=== PATIENT | female | born 1965 | race Caucasian/White ===

== ENCOUNTER 2018-06-04 16:07 | Emergency (ER) | payer OTHER ==
[~2018-06-04] VITALS: Ht 157.4 cm; Wt 88.5 kg
[~2018-06-04 16:07] MED LIST: AUGMENTIN 875 M1 TAB PO; CIPROFLOXACIN500 MG PO; CLARITIN10 MG PO; DIFLUCAN200 MG PO; MACROBID100 M1 PO; PROVENTIL0.09 MG/AC IH; ULTRAM50 MG PO
[2018-06-04 16:08] VITALS: BP 143/78
[2018-06-04 17:27] LABS: BILIRUBIN NEGATIVE (NEGATIVE); BLOOD 3+ (NEGATIVE); CLARITY CLOUDY (CLEAR); GLUCOSE NEGATIVE (NEGATIVE); KETONE NEGATIVE (NEGATIVE); LEUKO ESTERASE 2+ (NEGATIVE); NITRITE NEGATIVE (NEGATIVE); PH 5.5 (5.0-9.0); SPECIFIC GRAVITY >= 1.030 (1.005-1.030); UROBILINOGEN 0.2 E.U./dl (0.2-1.0)
[2018-06-04 17:33] LABS: COLOR YELLOW (YELLOW)
[2018-06-04 17:35] LABS: BACTERIA 3+; RBC TNTC rbc/hpf (0-2); WBC TNTC wbc/hpf (0-5)
[2018-06-04] MEDS ORDERED: KEFLEX500 M1 PO (17:43)
== END 2018-06-04 18:00 | disposition home or self-care (01) ==
LOC: ED 16:07
PROVIDERS: Physician Assistant
DX: N39.0 Urinary tract infection, site not specified (principal); Z88.1 Allergy status to other antibiotic agents; Z88.2 Allergy status to sulfonamides

== ENCOUNTER 2024-01-10 13:45 | Emergency (ER) | payer OTHER ==
[~2024-01-10] VITALS: Ht 157.4 cm; Wt 90.7 kg
[~2024-01-10 13:45] MED LIST changes: +KEFLEX500 M1 PO; +NITROFURANTOIN100 M3 PO
[2024-01-10 13:49] VITALS: BP 141/75
[2024-01-10] MEDS ORDERED: ACETAMINOPHEN 325 MG TAB PO ONE (14:00)
[2024-01-10] MEDS ORDERED: DEXAMETHASONE6 MG PO (15:23)
[2024-01-10] MEDS ORDERED: FLUONAZOLE150 M1 PO (15:23)
== END 2024-01-10 14:58 | disposition home or self-care (01) ==
LOC: ED 13:45
DX: U07.1 COVID-19 (principal); I10 Essential (primary) hypertension; E11.9 Type 2 diabetes mellitus without complications; J45.909 Unspecified asthma, uncomplicated; F32.A Depression, unspecified; Z88.2 Allergy status to sulfonamides; Z88.1 Allergy status to other antibiotic agents; Z88.8 Allergy status to other drugs, medicaments and biological substances; Z98.51 Tubal ligation status; Z90.49 Acquired absence of other specified parts of digestive tract; Z90.710 Acquired absence of both cervix and uterus

== ENCOUNTER 2024-01-26 13:44 | Emergency (ER) | payer OTHER ==
[~2024-01-26] VITALS: Wt 90.7 kg
[~2024-01-26 13:44] MED LIST changes: +DEXAMETHASONE6 MG PO; +FLUONAZOLE150 M1 PO
[2024-01-26 13:53] VITALS: BP 141/90
[2024-01-26] MEDS ORDERED: CEPHALEXIN 500 MG CAP PO ONE (14:05)
[2024-01-26] MEDS ORDERED: CEPHALEXIN500 M1 PO (14:09)
[2024-01-26] MEDS ORDERED: VIBRAMYCIN100 MG PO (14:09)
[2024-01-26 14:38] LABS: BILIRUBIN Negative (Negative); BLOOD 2+ (Negative); CLARITY Clear (Clear); COLOR Yellow (Yellow); GLUCOSE Negative (Negative); KETONE Trace (Negative); LEUKO ESTERASE 2+ (Negative); NITRITE Negative (Negative)
[2024-01-26 15:03] LABS: BACTERIA 1+; RBC 31-40 rbc/hpf (0-2)
== END 2024-01-26 14:22 | disposition home or self-care (01) ==
LOC: ED 13:44
PROVIDERS: Emergency Medicine
DX: N39.0 Urinary tract infection, site not specified (principal); E11.9 Type 2 diabetes mellitus without complications; J45.909 Unspecified asthma, uncomplicated; I10 Essential (primary) hypertension; F32.A Depression, unspecified; Z88.2 Allergy status to sulfonamides; Z88.1 Allergy status to other antibiotic agents; Z88.8 Allergy status to other drugs, medicaments and biological substances; Z90.49 Acquired absence of other specified parts of digestive tract; Z98.51 Tubal ligation status; Z98.890 Other specified postprocedural states

== ENCOUNTER → 2024-04-08 | Outpatient (CLI) | payer OTHER ==
[~2024-04-08] MED LIST changes: +CEPHALEXIN500 M1 PO; +VIBRAMYCIN100 MG PO
[2024-04-08 14:36] LABS: BASO % 0.4 % (0.0-1.0); EOS # 0.2 10*3/uL (0.0-0.4); HEMATOCRIT 45.5 % (37.0-47.0); MEAN CELL VOLUME 80.2 fl (81.0-99.0); MEAN CORPUSCULAR HGB 24.2 pg (27.0-31.0); MEAN CORPUSCULAR HGB CONC 30.1 g/dl (33.0-37.0); MEAN PLATELET VOLUME 10.1 fl (9.6-12.3); MONO # 0.6 10*3/uL (0.1-1.0); MONO % 6.1 % (3.0-9.0); NEUT # 7.3 10*3/uL (2.3-7.9); PLATELET COUNT AUTOMATED 370 10*3/uL (130-400); RED BLOOD COUNT 5.67 10*6/uL (4.10-5.10); RED CELL DISTRI WIDTH 16.3 % (0-14.5); WHITE BLOOD COUNT 10.3 10*3/uL (4.8-10.8)
[2024-04-08 14:36] LABS: BILIRUBIN Negative (Negative); BLOOD Negative (Negative); CLARITY Clear (Clear); COLOR Yellow (Yellow); GLUCOSE Negative (Negative); KETONE Negative (Negative); LEUKO ESTERASE 2+ (Negative); NITRITE Negative (Negative); PH 5.5 (4.5-8.0); SPECIFIC GRAVITY 1.015 (1.001-1.030)
[2024-04-08 15:05] LABS: FREE T4 1.48 ng/dl (0.89-1.76); POTASSIUM 4.5 mmol/L (3.4-5.1); TOTAL PROTEIN 8.8 gm/dL (6.0-8.0)
[2024-04-08 15:13] LABS: BACTERIA 1+; WBC 51-100 wbc/hpf (0-5)
== END | disposition home or self-care (01) ==
LOC: LAB 13:46
PROVIDERS: ATTEND Internal Medicine
DX: E11.40 Type 2 diabetes mellitus with diabetic neuropathy, unspecified (principal); E55.9 Vitamin D deficiency, unspecified; R35.0 Frequency of micturition

== ENCOUNTER 2024-04-27 16:59 | Emergency (ER) | payer OTHER ==
[~2024-04-27] VITALS: Ht 157.4 cm; Wt 90.7 kg
[2024-04-27 17:18] VITALS: BP 137/77
[2024-04-27] MEDS ORDERED: CETIRIZINE HYDR10 MG PO (17:28)
[2024-04-27] MEDS ORDERED: TERBINAFINE250 MG PO (17:28)
[2024-04-27] MEDS ORDERED: CLOBETASOL PROP15 GM T (17:29)
[2024-04-27] MEDS ORDERED: DULOXETINE HCL60 MG PO (17:29)
[2024-04-27] MEDS ORDERED: AMMONIUM LACTA227 GM T (17:29)
[2024-04-27] MEDS ORDERED: GABAPENTIN600 MG PO (17:29)
[2024-04-27] MEDS ORDERED: METOPROLOL TART50 M1 PO (17:30)
[2024-04-27] MEDS ORDERED: MELOXICAM7.5 MG PO (17:30)
[2024-04-27] MEDS ORDERED: JANUVIA100 MG PO (17:30)
[2024-04-27] MEDS ORDERED: MIRTAZAPINE30 M2 PO (17:30)
[2024-04-27] MEDS ORDERED: Magnesium Oxid400 MG PO (17:31)
[2024-04-27] MEDS ORDERED: TOUJEO SOL300 UNIT/1 SQ (17:31)
[2024-04-27] MEDS ORDERED: METFORMIN HYD1000 MG PO (17:32)
[2024-04-27] MEDS ORDERED: PANTOPRAZOLE SO40 MG PO (17:32)
[2024-04-27] MEDS ORDERED: Ketorolac Tromethamine 60 MG/2 ML VIAL IM ONE (19:25)
[2024-04-27 20:27] LABS: BILIRUBIN Negative (Negative); BLOOD Negative (Negative); CLARITY Clear (Clear); COLOR Yellow (Yellow); GLUCOSE Negative (Negative); KETONE Negative (Negative); LEUKO ESTERASE 2+ (Negative); NITRITE Negative (Negative); UROBILINOGEN 0.2 E.U./dl (0.0-1.0)
[2024-04-27 20:35] LABS: BASO # 0.1 10*3/uL (0.0-0.1); BASO % 0.6 % (0.0-1.0); EOS # 0.2 10*3/uL (0.0-0.4); EOS % 2.5 % (1.0-4.0); HEMATOCRIT 37.3 % (37.0-47.0); MEAN CELL VOLUME 79.4 fl (81.0-99.0); MEAN CORPUSCULAR HGB 24.5 pg (27.0-31.0); MEAN CORPUSCULAR HGB CONC 30.8 g/dl (33.0-37.0); MEAN PLATELET VOLUME 10.4 fl (9.6-12.3); MONO # 0.6 10*3/uL (0.1-1.0); MONO % 6.2 % (3.0-9.0); NEUT # 6.7 10*3/uL (2.3-7.9); NEUT % 69.3 % (47.0-73.0); PLATELET COUNT AUTOMATED 262 10*3/uL (130-400); RED CELL DISTRI WIDTH 15.9 % (0-14.5); WHITE BLOOD COUNT 9.7 10*3/uL (4.8-10.8)
[2024-04-27 20:57] LABS: ALKALINE PHOSPHATASE 86 U/L (46-116); BUN 16 mg/dl (9-23); CHLORIDE 105 mmol/L (98-107); POTASSIUM 4.1 mmol/L (3.4-5.1); SGPT/ALT 20 U/L (5-49); TOTAL PROTEIN 7.7 gm/dL (6.0-8.0)
[2024-04-27 21:26] LABS: BACTERIA 1+; MUCOUS 1+
[2024-04-27] MEDS ORDERED: Nitrofurantoin Monohydrate/N 100 MG CAP PO ONE (22:10)
[2024-04-27] MEDS ORDERED: MACROBID100 M1 PO (22:11)
== END 2024-04-27 22:00 | disposition home or self-care (01) ==
LOC: ED 16:59
PROVIDERS: Nurse Practitioner
DX: N39.0 Urinary tract infection, site not specified (principal); R51.9 Headache, unspecified; E11.9 Type 2 diabetes mellitus without complications; J45.909 Unspecified asthma, uncomplicated; I10 Essential (primary) hypertension; M19.90 Unspecified osteoarthritis, unspecified site; F32.A Depression, unspecified; R42 Dizziness and giddiness; M54.2 Cervicalgia; Z88.2 Allergy status to sulfonamides; Z88.1 Allergy status to other antibiotic agents; Z88.8 Allergy status to other drugs, medicaments and biological substances; Z98.890 Other specified postprocedural states; Z90.710 Acquired absence of both cervix and uterus; Z90.49 Acquired absence of other specified parts of digestive tract; W18.09XA Striking against other object with subsequent fall, initial encounter

== ENCOUNTER → 2024-07-17 | Outpatient (CLI) | payer OTHER ==
[~2024-07-17] MED LIST changes: +AMMONIUM LACTA227 GM T; +CETIRIZINE HYDR10 MG PO; +CLOBETASOL PROP15 GM T; +DULOXETINE HCL60 MG PO; +GABAPENTIN600 MG PO; +JANUVIA100 MG PO; +MELOXICAM7.5 MG PO; +METFORMIN HYD1000 MG PO; +METOPROLOL TART50 M1 PO; +MIRTAZAPINE30 M2 PO; +Magnesium Oxid400 MG PO; +PANTOPRAZOLE SO40 MG PO; +TERBINAFINE250 MG PO; +TOUJEO SOL300 UNIT/1 SQ
== END | disposition home or self-care (01) ==
LOC: RAD 12:08
PROVIDERS: ATTEND Internal Medicine
DX: M25.531 Pain in right wrist (principal); R07.89 Other chest pain

== ENCOUNTER → 2024-07-22 | Outpatient (CLI) | payer MEDICAID ==
[2024-07-22 13:41] LABS: BASO # 0.1 10*3/uL (0.0-0.1); BASO % 0.7 % (0.0-1.0); EOS # 0.4 10*3/uL (0.0-0.4); EOS % 4.1 % (1.0-4.0); HEMATOCRIT 40.1 % (37.0-47.0); MEAN CELL VOLUME 81.2 fl (81.0-99.0); MEAN CORPUSCULAR HGB 24.3 pg (27.0-31.0); MEAN CORPUSCULAR HGB CONC 29.9 g/dl (33.0-37.0); MEAN PLATELET VOLUME 9.8 fl (9.6-12.3); MONO # 0.5 10*3/uL (0.1-1.0); MONO % 5.7 % (3.0-9.0); NEUT # 7.1 10*3/uL (2.3-7.9); NEUT % 77.8 % (47.0-73.0); PLATELET COUNT AUTOMATED 317 10*3/uL (130-400); RED BLOOD COUNT 4.94 10*6/uL (4.10-5.10); RED CELL DISTRI WIDTH 16.5 % (0-14.5); WHITE BLOOD COUNT 9.1 10*3/uL (4.8-10.8)
[2024-07-22 14:05] LABS: ALKALINE PHOSPHATASE 138 U/L (46-116); BUN 16 mg/dl (9-23); CHLORIDE 104 mmol/L (98-107); POTASSIUM 4.8 mmol/L (3.4-5.1); SGPT/ALT 27 U/L (5-49); TOTAL PROTEIN 8.1 gm/dL (6.0-8.0)
[2024-07-24 12:07] LABS: TB1 Ag VALUE 0.05 IU/mL (.)
== END | disposition home or self-care (01) ==
LOC: LAB 13:11
PROVIDERS: ATTEND Specialist
DX: L40.50 Arthropathic psoriasis, unspecified (principal); M19.90 Unspecified osteoarthritis, unspecified site; Z79.899 Other long term (current) drug therapy

== ENCOUNTER → 2024-08-18 | Outpatient (CLI) | payer MEDICAID | END | disposition home or self-care (01) | LOC: LAB 11:36 | PROVIDERS: ATTEND Internal Medicine | DX: E11.40 Type 2 diabetes mellitus with diabetic neuropathy, unspecified (principal) ==

== ENCOUNTER 2024-10-13 15:14 | Emergency (ER) | payer MEDICAID ==
[~2024-10-13] VITALS: Ht 157.4 cm; Wt 97.5 kg
[2024-10-13 15:41] VITALS: BP 138/88
[2024-10-13 15:58] LABS: BASO # 0.1 10*3/uL (0.0-0.1); BASO % 0.7 % (0.0-1.0); EOS # 0.2 10*3/uL (0.0-0.4); EOS % 1.8 % (1.0-4.0); MEAN CELL VOLUME 77.7 fl (81.0-99.0); MEAN CORPUSCULAR HGB 24.0 pg (27.0-31.0); MEAN PLATELET VOLUME 9.7 fl (9.6-12.3); MONO # 0.7 10*3/uL (0.1-1.0); MONO % 7.1 % (3.0-9.0); NEUT # 7.0 10*3/uL (2.3-7.9); NEUT % 74.2 % (47.0-73.0); NUCLEATED RED BLOOD CELL 0.0 % (0.0-0.0); NUCLEATED RED BLOOD CELL 0.0 10*3/uL (0.0-0.0); PLATELET COUNT AUTOMATED 320 10*3/uL (130-400); RED CELL DISTRI WIDTH 16.1 % (0-14.5)
[2024-10-13 16:31] LABS: BILIRUBIN Negative (Negative); BLOOD Negative (Negative); CLARITY Cloudy (Clear); COLOR Yellow (Yellow); KETONE Negative (Negative); LEUKO ESTERASE 2+ (Negative); NITRITE Negative (Negative); PH 5.5 (4.5-8.0); SPECIFIC GRAVITY >= 1.030 (1.001-1.030); UROBILINOGEN 1.0 E.U./dl (0.0-1.0)
[2024-10-13 16:40] LABS: BACTERIA 4+; WBC TNTC wbc/hpf (0-5)
[2024-10-13 16:48] LABS: BUN 21 mg/dl (9-23)
[2024-10-13] MEDS ORDERED: INSULIN REGULAR, HUMAN 1 UNIT/0.01 ML IV ONE (17:20)
[2024-10-13] MEDS ORDERED: CEPHALEXIN500 M1 PO (19:35)
== END 2024-10-13 19:53 | disposition home or self-care (01) ==
LOC: ED 15:14
PROVIDERS: Nurse Practitioner
DX: N39.0 Urinary tract infection, site not specified (principal); E11.65 Type 2 diabetes mellitus with hyperglycemia; I10 Essential (primary) hypertension; J45.909 Unspecified asthma, uncomplicated; F32.A Depression, unspecified; Z79.4 Long term (current) use of insulin; Z79.899 Other long term (current) drug therapy; Z88.1 Allergy status to other antibiotic agents; Z88.2 Allergy status to sulfonamides; Z88.8 Allergy status to other drugs, medicaments and biological substances; Z90.710 Acquired absence of both cervix and uterus; Z98.890 Other specified postprocedural states

== ENCOUNTER 2025-01-08 16:15 | Inpatient (IN) | payer MEDICAID ==
[~2025-01-08] VITALS: Ht 157.4 cm; Wt 101.2 kg
[2025-01-08 16:35] VITALS: BP 151/96
[2025-01-08] MEDS ORDERED: SODIUM CHLORIDE 0.9% 1,000 ML IV ONE (16:55)
[2025-01-08 17:09] LABS: BASO # 0.1 10*3/uL (0.0-0.1); BASO % 0.7 % (0.0-1.0); EOS # 0.3 10*3/uL (0.0-0.4); EOS % 3.1 % (1.0-4.0); MEAN CELL VOLUME 80.1 fl (81.0-99.0); MEAN CORPUSCULAR HGB 24.3 pg (27.0-31.0); MEAN PLATELET VOLUME 10.0 fl (9.6-12.3); MONO # 0.6 10*3/uL (0.1-1.0); MONO % 5.3 % (3.0-9.0); NEUT # 8.2 10*3/uL (2.3-7.9); NEUT % 75.9 % (47.0-73.0); NUCLEATED RED BLOOD CELL 0.0 % (0.0-0.0); NUCLEATED RED BLOOD CELL 0.0 10*3/uL (0.0-0.0); PLATELET COUNT AUTOMATED 296 10*3/uL (130-400); RED CELL DISTRI WIDTH 16.8 % (0-14.5)
[2025-01-08 17:38] LABS: BUN 14 mg/dl (9-23); SGPT/ALT 26 U/L (5-49)
[2025-01-08] MEDS ORDERED: MAGNESIUM SULFATE 50 ML IV ONE (18:15)
[2025-01-08 18:41] LABS: BILIRUBIN Negative (Negative); BLOOD Negative (Negative); CLARITY Cloudy (Clear); COLOR Yellow (Yellow); KETONE Trace (Negative); LEUKO ESTERASE 1+ (Negative); NITRITE Positive (Negative); PH 5.5 (4.5-8.0); SPECIFIC GRAVITY 1.025 (1.001-1.030); UROBILINOGEN 1.0 E.U./dl (0.0-1.0)
[2025-01-08 18:58] LABS: BACTERIA 3+; EPITHELIAL CELLS 21-30; RBC 0-2 rbc/hpf (0-2); WBC 21-30 wbc/hpf (0-5)
[2025-01-08 21:20] VITALS: BP 117/86
[2025-01-08] MEDS ORDERED: BISACODYL 10 MG SUPP R PRN (21:30)
[2025-01-08] MEDS ORDERED: Acetaminophen/Hydrocodone 5 MG/325 MG TABLET PO PRN (21:30)
[2025-01-08] MEDS ORDERED: BISACODYL 5 MG TAB PO PRN (21:30)
[2025-01-08] MEDS ORDERED: ACETAMINOPHEN 325 MG TAB PO PRN (21:30)
[2025-01-08] MEDS ORDERED: Ondansetron Hydrochloride 4 MG/2 ML VIAL IV PRN (21:30)
[2025-01-08] MEDS ORDERED: ACETAMINOPHEN 650 MG SUPP R PRN (21:30)
[2025-01-08] MEDS ORDERED: TEMAZEPAM 15 MG CAP PO PRN (21:30)
[2025-01-08] MEDS ORDERED: PLAQUENIL200 MG PO (22:25)
[2025-01-08] MEDS ORDERED: DEXTROSE 50% 25 GM/50 ML VIAL IV PRN (23:05)
[2025-01-08] MEDS ORDERED: MAGNESIUM OXIDE 400 MG TAB PO SCH (23:05)
[2025-01-08] MEDS ORDERED: Insulin Glargine, Recombinan 1 UNIT/0.01 ML SC SCH (23:05)
[2025-01-08] MEDS ORDERED: GABAPENTIN 600 MG TAB PO SCH (23:05)
[2025-01-08] MEDS ORDERED: Mirtazapine 15 MG TAB PO SCH (23:05)
[2025-01-09] VITALS: BP 130/68
[2025-01-09] MEDS ORDERED: NYSTATIN 15 GM BOT T SCH (06:00)
[2025-01-09 06:08] LABS: BASO # 0.1 10*3/uL (0.0-0.1); BASO % 1.0 % (0.0-1.0); EOS # 0.3 10*3/uL (0.0-0.4); EOS % 3.9 % (1.0-4.0); MEAN CELL VOLUME 80.9 fl (81.0-99.0); MEAN CORPUSCULAR HGB 23.8 pg (27.0-31.0); MEAN PLATELET VOLUME 10.6 fl (9.6-12.3); MONO # 0.6 10*3/uL (0.1-1.0); MONO % 7.5 % (3.0-9.0); NEUT # 5.6 10*3/uL (2.3-7.9); NEUT % 66.2 % (47.0-73.0); NUCLEATED RED BLOOD CELL 0.0 % (0.0-0.0); NUCLEATED RED BLOOD CELL 0.0 10*3/uL (0.0-0.0); PLATELET COUNT AUTOMATED 255 10*3/uL (130-400); RED CELL DISTRI WIDTH 16.9 % (0-14.5)
[2025-01-09 06:42] LABS: VITAMIN D, 25-HYDROXY 52.5 ng/mL (30-100)
[2025-01-09 06:44] LABS: BUN 15 mg/dl (9-23); FREE T4 1.34 ng/dl (0.89-1.76); LDL CHOLESTEROL 76 mg/dL (9-159); SGPT/ALT 20 U/L (5-49)
[2025-01-09] MEDS ORDERED: INSULIN LISPRO 1 UNIT/0.01 ML SQ SCH (07:30)
[2025-01-09 08:00] VITALS: BP 132/69
[2025-01-09] MEDS ORDERED: Meloxicam 15 MG TAB PO SCH (10:00)
[2025-01-09] MEDS ORDERED: Insulin Glargine, Recombinan 1 UNIT/0.01 ML SC SCH (10:00)
[2025-01-09 12:00] VITALS: BP 139/78
[2025-01-09 16:00] VITALS: BP 137/67
[2025-01-09 20:00] VITALS: BP 115/59
[2025-01-10] VITALS: BP 137/61
[2025-01-10 08:00] VITALS: BP 137/88
[2025-01-10 10:06] LABS: BASO # 0.1 10*3/uL (0.0-0.1); BASO % 0.9 % (0.0-1.0); EOS # 0.3 10*3/uL (0.0-0.4); EOS % 3.2 % (1.0-4.0); MEAN CELL VOLUME 80.4 fl (81.0-99.0); MEAN CORPUSCULAR HGB 24.2 pg (27.0-31.0); MEAN PLATELET VOLUME 9.9 fl (9.6-12.3); MONO # 0.5 10*3/uL (0.1-1.0); MONO % 5.3 % (3.0-9.0); NEUT # 7.5 10*3/uL (2.3-7.9); NEUT % 74.2 % (47.0-73.0); NUCLEATED RED BLOOD CELL 0.0 % (0.0-0.0); NUCLEATED RED BLOOD CELL 0.0 10*3/uL (0.0-0.0); PLATELET COUNT AUTOMATED 287 10*3/uL (130-400); RED CELL DISTRI WIDTH 16.9 % (0-14.5)
[2025-01-10 10:28] LABS: BUN 10 mg/dl (9-23); SGPT/ALT 23 U/L (5-49)
[2025-01-10 11:18] VITALS: BP 132/79
[2025-01-10] MEDS ORDERED: SODIUM CHLORIDE 0.9% 1,000 ML IV ONE (11:50)
[2025-01-10] MEDS ORDERED: SODIUM CHLORIDE 0.9% 1,000 ML IV SCH (11:55)
[2025-01-10 16:00] VITALS: BP 110/83
[2025-01-10 20:00] VITALS: BP 122/72
[2025-01-11] VITALS: BP 120/64
[2025-01-11 01:25] VITALS: BP 136/85
[2025-01-11 01:26] VITALS: BP 128/79
[2025-01-11 01:27] VITALS: BP 136/88
[2025-01-11 08:00] VITALS: BP 137/74
[2025-01-11] MEDS ORDERED: LINAGLIPTIN 5 MG TAB PO SCH (10:00)
[2025-01-11 12:00] VITALS: BP 136/67
[2025-01-11] MEDS ORDERED: Meclizine25 MG PO (12:03)
== END 2025-01-11 16:40 | disposition home or self-care (01) | DRG 463 ==
LOC: ED 16:15 → 5E 20:11 → EDHOLD 20:11 → 5E 20:46
PROVIDERS: Nurse Practitioner Family; Student in an Organized Health Care Education/Training Program; ADMIT Internal Medicine; ATTEND Internal Medicine
DX: N39.0 Urinary tract infection, site not specified (principal); I95.1 Orthostatic hypotension; G90.9 Disorder of the autonomic nervous system, unspecified; E83.42 Hypomagnesemia; E11.42 Type 2 diabetes mellitus with diabetic polyneuropathy; I10 Essential (primary) hypertension; J45.909 Unspecified asthma, uncomplicated; M06.9 Rheumatoid arthritis, unspecified; F32.A Depression, unspecified; L40.9 Psoriasis, unspecified; K58.9 Irritable bowel syndrome, unspecified; K21.9 Gastro-esophageal reflux disease without esophagitis; F32.9 Major depressive disorder, single episode, unspecified; G47.00 Insomnia, unspecified; R74.01 Elevation of levels of liver transaminase levels; E11.40 Type 2 diabetes mellitus with diabetic neuropathy, unspecified; E86.0 Dehydration; Z88.2 Allergy status to sulfonamides; Z88.8 Allergy status to other drugs, medicaments and biological substances; Z79.4 Long term (current) use of insulin; Z90.49 Acquired absence of other specified parts of digestive tract; Z90.710 Acquired absence of both cervix and uterus